=== PATIENT | female | born 1995 | race Caucasian/White ===

== ENCOUNTER 2017-04-15 06:06 | Day surgery (SDC) | payer BC ==
--- NOTE | 2017-04-13 06:17 | HP ---
HISTORY OF PRESENT ILLNESS: Marycarmen Ferrer is a 22-year-old female who was attending &[facility] for a year, developed a wound in her midline buttocks area, had bloody drainage and she treated with peroxide and gauze dressings, never really having it evaluated. She has seen Dr. Quinn recent ly and referred evaluation reveals changes consistent with a pilonidal cyst. This is a very large op ening with fleshy granulation tissue, opening is about a 2.5 to 3 cm. It extends deeply. There is n o active infection. The patient is 280 pounds, 67 inches tall, 43 BMI. Plan is for resection of the pilonidal cyst, plastic closure. Risk of infection, bleeding, reoperation, wound dehiscence, wound healing problems discussed. Questions answered. Plan is under general as an outpatient. ALLERGIES: None. TOBACCO: None. ALCOHOL: None. MEDICATIONS: None routinely. PAST SURGICAL HISTORY: Noncontributory. PAST MEDICAL HISTORY: Noncontributory. The patient has taken a semester off, looking for a job. Currently, she is living at home. PHYSICAL EXAMINATION VITAL SIGNS: Weight 280 pounds, height 67 inches, 43 BMI, blood pressure 119/63, pulse 87, and tempe rature 98.6 degrees. HEAD, EARS, EYES, NOSE AND THROAT: Unremarkable. LUNGS: Clear to auscultation. CARDIAC: Regular rate and rhythm without murmur or gallop. ABDOMEN: Soft, obese, nontender. In the midline presacral area and buttocks area, there is a large opening with fleshy granulation tissue extending down to the sacrum. EXTREMITIES: Unremarkable. ASSESSMENT AND PLAN. Anal fissure. This is a very large anal fissure. Saline wet to dry dressings were applied today. I have discussed surgical treatment with Z-plasty closure. Risks and benefits a s discussed above. Questions answered. We will plan next week. They understand the risks of wound healing problems and possibly local wound care for postoperatively if the wound comes apart.
[2017-04-14 13:53] VITALS: BMI 43.2
[2017-04-15] MEDS ORDERED: Bupivacaine 0.25% HCL 30 ML VIAL ONE (06:51)
[2017-04-15] MEDS ORDERED: Lidocaine 2% w/Epinephrine 1:200K 20 ML VIAL ONE (06:51)
[2017-04-15] MEDS ORDERED: Fentanyl 100 MCG/2 ML VIAL ONE (06:57)
[2017-04-15 07:03] LABS: #Basophils 0.1 thou/uL (0.0-0.2); #Eosinphils 0.1 thou/uL (0.0-0.7); #Lymphocytes 2.3 thou/uL (1.20-3.40); #Monocytes 0.6 thou/uL (0.11-0.59); #Neutrophils 4.3 thou/uL (1.40-6.50); %Basophils 0.8 % (0.0-1.0); %Eosinophils 1.1 % (0.0-10.0); %Monocytes 8.3 % (0.0-10.0); %Neutrophils 58.9 % (42.0-75.0); Hemoglobin 12.2 g/dL (12.0-16.0); Mean Corpuscular HGB CONC 33.6 g/dL (32.0-36.0); Mean Corpuscular Hemoglobin 28.6 pg (27.0-31.0); Mean Corpuscular Volume 85.1 fl (81.0-99.0); Mean Platelet Volume 7.9 fL (7.4-10.4); Platelet Count 286 thou/uL (130-400); RBC Distribution Width 12.1 % (11.5-14.5); Red Blood Cell (RBC) Count 4.27 mill/uL (4.20-5.40); White Blood Cell (WBC) Count 7.3 thou/uL (4.8-10.8)
[2017-04-15] MEDS ORDERED: Clindamycin/D5W 600 mg/50 ml Premix Bag ONE (07:10)
[2017-04-15] MEDS ORDERED: Scopolamine 1.5 mg/72 hour Patch ONE (07:10)
[2017-04-15] MEDS ORDERED: Ketorolac Tromethamine 30 MG/ML VIAL ONE (07:10)
[2017-04-15 07:13] LABS: BHCG - Serum Negative (NEGATIVE); Pregs Control Background? CLEAR/WHITE (CLR/WHITE); Pregs Control Bar Appear? YES (CONTROL BAR)
[2017-04-15] MEDS ORDERED: Clindamycin/D5W 600 MG in Premix Bag 1 BAG IVPB SCH (07:15)
[2017-04-15 07:28] LABS: Anion Gap 10 mmol/L (10-20); BUN (Urea Nitrogen) 14 mg/dL (7.0-18.7); Calc. Creatinine Clearance 180 mL/min (70-130); Calcium 9.4 mg/dL (7.8-10.44); Carbon Dioxide 29 mmol/L (22-29); Chloride 104 mmol/L (98-107); Estimated GFR-MDRD 74; Glucose 87 mg/dL (70-105); Potassium 3.9 mmol/L (3.5-5.1); Sodium 139 mmol/L (136-145)
[2017-04-15] MEDS ORDERED: Midazolam HCl 2 mg/2 ml Vial ONE (07:32)
--- NOTE | 2017-04-15 08:57 | OP ---
DATE OF PROCEDURE: 04/15/2017 PREOPERATIVE DIAGNOSES: 1. Pilonidal cyst with open wound. 2. Obesity. POSTOPERATIVE DIAGNOSES: 1. Pilonidal cyst with open wound. 2. Obesity. PROCEDURE: Excision of deep pilonidal cyst with Z-plasty closure, 2 layer plastic closure with a #1 0 round ELENA drain. SURGEON: Dr. Peyman Matson ANESTHESIA: General. Local 0.25% Marcaine, 30 mL, mixed with 1% Xylocaine with epinephrine, 30 mL t otal volume mixture used. PROCEDURE IN DETAIL: The patient was taken to the operating room where under general anesthesia in t he prone position, buttocks taped apart, prepared with ChloraPrep, draped in routine fashion. The op en wound is in the presacral space midline with fleshy granulation tissue approximately [address] and 2 cm deep. There was a dimple inferiorly midline with a large black hair protruding which wa s clipped prior to prepping. Elliptical incision was made and carried down through the skin and subc utaneous tissue to the buttocks fascia and all the disease removed without a visible sinus tract duri ng the resection. Hemostasis gained with cautery, markings were made for a Z-plasty flaps which were performed with cutting current cautery used for hemostasis with cautery current. Flaps dissected fr ee, mobilized and transposed and #10 ELENA drain round placed through a right upper buttock exit site se cured with 3-0 nylon suture. Drain tailored to length and placed in the deep tissue. Subcutaneous t issues approximated with continuous suture of 2-0 Monocryl. Skin approximated with continuous suture of 4-0 Monocryl and DermaGlue applied. Local anesthetic had been infiltrated about the wound for po stoperative pain control. The patient tolerated the procedure well.
[2017-04-15] MEDS ORDERED: HYDROcodone/Acetaminophen 5/325 mg Tablet ONE (11:00)
[2017-04-15] MEDS ORDERED: Dexamethasone 20 MG/5 ML VIAL ONE (15:16)
[2017-04-15] MEDS ORDERED: Ondansetron HCl/PF 4 MG/2 ML Vial ONE (15:16)
[2017-04-15] MEDS ORDERED: Glycopyrrolate 0.2 MG/ML 5 ML SYRINGE ONE (15:16)
[2017-04-15] MEDS ORDERED: Propofol 200 MG/20 ML VIAL ONE (15:16)
[2017-04-15] MEDS ORDERED: Lidocaine 1% PF 5 ML VIAL ONE (15:16)
== END 2017-04-15 11:07 | disposition home or self-care (01) ==
LOC: SDC 06:06 → EEVIPCON 06:06 → SDC 11:07
PROVIDERS: ATTEND Specialist
PROC: 0HX8XZZ Transfer Buttock Skin, External Approach (ICD-10-PCS; principal; 2017-04-15)
PROC: 0JB90ZZ Excision of Buttock Subcutaneous Tissue and Fascia, Open Approach (ICD-10-PCS; principal; 2017-04-15)
DX: L05.01 Pilonidal cyst with abscess (principal); Z68.41 Body mass index [BMI] 40.0-44.9, adult; E66.9 Obesity, unspecified
CPT/HCPCS: 36415; 80048; 84703; 85025; 88304; J0131; J1100; J1885; J1956; J2001; J2250; J2405; J2704; J3010; J3490; Q9968; S0020

== ENCOUNTER 2017-04-28 10:53 | Outpatient (CLI) | payer BC ==
[2017-04-28] MEDS ORDERED: Sodium Chloride 0.9% 15 ML NEB ONE (11:11)
== END 2017-04-28 10:54 | disposition home or self-care (01) ==
LOC: WCC 10:53
PROVIDERS: ATTEND Family Medicine
DX: T81.89XD Other complications of procedures, not elsewhere classified, subsequent encounter (principal)
CPT/HCPCS: 97602; A4218

== ENCOUNTER 2017-04-30 10:55 | Outpatient (CLI) | payer BC | END 2017-04-30 10:56 | disposition home or self-care (01) | LOC: WCC 10:55 | PROVIDERS: ATTEND Family Medicine | DX: T81.89XD Other complications of procedures, not elsewhere classified, subsequent encounter (principal) | CPT/HCPCS: 97606 ==

== ENCOUNTER 2017-05-04 09:05 | Outpatient (CLI) | payer BC ==
--- NOTE | 2017-05-04 10:51 | HP ---
DATE OF SERVICE: 05/04/2017 HISTORY OF PRESENT ILLNESS: Ms. Marycarmen Ferrer is a very pleasant 22-year-old accompanied by her mo ther who presents to the [facility] for evaluation of a wound of the sacral area subsequent to exci carl of a deep pilonidal cyst with Z-plasty closure. The patient underwent the preceding procedure o n 04/15/2017, by Dr. Peyman Matson. The patient states that at her first visit with Dr. Dano lima surgery, she was told that her skin flaps were possibly nonviable. She states that at a second fol low up visit on 04/28/2017, necrotic and nonviable tissue was excised and at this time, the patient w as referred to the Wound Center for the initiation of negative pressure therapy. Ms. Ferrer has no co mplaints today except for itching of her skin surrounding her wound for which she takes Benadryl. Th e patient denies any fever or chills. PAST MEDICAL HISTORY: Negative for any chronic medical conditions. PAST SURGICAL HISTORY: Excision of deep pilonidal cyst with Z-plasty closure on 04/15/2017, by Dr. Oswaldo Matson. MEDICATIONS: 1. Tylenol. 2. Benadryl. ALLERGIES: No known diagnosed allergies. SOCIAL HISTORY: Negative for tobacco or EtOH use. FAMILY HISTORY: Negative for diabetes mellitus or coronary artery disease. PHYSICAL EXAMINATION: VITAL SIGNS: Temperature 98.1, pulse 119, respirations 19 and blood pressure 117/56. GENERAL: A 22-year-old female lying on table in prone position in no acute distress. HEENT: Normocephalic and atraumatic. NECK: No nuchal rigidity. CHEST: Clear to auscultation. CARDIOVASCULAR: Regular rate and rhythm. ABDOMEN: Soft. BACK: A wound of the sacral region subsequent to excision of the pilonidal cyst with Z-plasty closur e is present. The depth of the wound is approximately 6 cm. Granulation tissue is present within th e wound margins. No purulent drainage is associated with the wound. No cellulitis of the sacral reg ion is appreciated. No maceration of the skin of the periwound is noted. EXTREMITIES: No clubbing or cyanosis. NEUROLOGIC: Grossly nonfocal. ASSESSMENT AND PLAN: Sacral wound subsequent to excision of the pilonidal cyst with Z-plasty on 03/18, by Dr. Peyman Matson. Negative pressure therapy will be continued with dressing changes of the wound VAC 2 times per week here in the Wound Center. The patient will be seen by Dr. Matson in t he near future. I will see Ms. Ferrer again in two weeks. No antibiotics will be prescribed today ba sed upon the appearance of the wound. The wound VAC will be placed to settings of 125 mmHg, continuo us today.
[2017-05-04] MEDS ORDERED: Sodium Chloride 0.9% 15 ML NEB ONE (11:11)
== END 2017-05-04 09:06 | disposition home or self-care (01) ==
LOC: WCC 09:05
PROVIDERS: ATTEND Family Medicine
DX: S31.000D Unspecified open wound of lower back and pelvis without penetration into retroperitoneum, subsequent encounter (principal); Z98.890 Other specified postprocedural states
CPT/HCPCS: 97606; 99203; A4218; G0463

== ENCOUNTER 2017-05-07 16:12 | Outpatient (CLI) | payer BC | END 2017-05-07 16:13 | disposition home or self-care (01) | LOC: WCC 16:12 | PROVIDERS: ATTEND Family Medicine | DX: T81.89XD Other complications of procedures, not elsewhere classified, subsequent encounter (principal) | CPT/HCPCS: 97605 ==

== ENCOUNTER 2017-05-08 15:10 | Outpatient (CLI) | payer BC | END 2017-05-08 15:11 | disposition home or self-care (01) | LOC: WCC 15:10 | PROVIDERS: ATTEND Family Medicine | DX: T81.89XD Other complications of procedures, not elsewhere classified, subsequent encounter (principal) | CPT/HCPCS: 97605 ==

== ENCOUNTER 2017-05-11 14:05 | Outpatient (CLI) | payer BC ==
[2017-05-11] MEDS ORDERED: Lidocaine 4% Topical Sol 50 ML BOT ONE (14:20)
== END 2017-05-11 14:06 | disposition home or self-care (01) ==
LOC: WCC 14:05
PROVIDERS: ATTEND Family Medicine
DX: T81.89XD Other complications of procedures, not elsewhere classified, subsequent encounter (principal)
CPT/HCPCS: 97605; J2001

== ENCOUNTER 2017-05-14 14:59 | Outpatient (CLI) | payer BC | END 2017-05-14 15:00 | disposition home or self-care (01) | LOC: WCC 14:59 | PROVIDERS: ATTEND Family Medicine | DX: T81.89XD Other complications of procedures, not elsewhere classified, subsequent encounter (principal) | CPT/HCPCS: 97605 ==

== ENCOUNTER 2017-05-18 09:25 | Outpatient (CLI) | payer BC ==
[~2017-05-18 09:25] MED LIST: Sodium Chloride 0.9% 15 ML NEB ONE
--- NOTE | 2017-05-18 10:36 | PRG ---
DATE OF SERVICE: 05/18/2017 HISTORY: Ms. Marycarmen Ferrer is a very pleasant 22-year-old, accompanied by her mother, who presents to the [facility] Center for evaluation of a wound of the sacral area subsequent to excision of a deep pilonidal cyst with Z-plasty closure. The patient underwent the preceding procedure on 04/15/[address] Peyman Matson. The patient previously stated that at her first visit with Dr. Matson after surgery, she was told that her skin flaps were possibly nonviable. She stated that at a second follow-up visit on 04/28/2017, necrotic and nonviable tissue was excised, and at this time, the patient was referred to the Wound Center for the initiation of negative pressure therapy. The patient has no complaints today. She denies any fever or chills. PHYSICAL EXAMINATION: VITAL SIGNS: Temperature 97.5, pulse 81, respirations 18, blood pressure 106/ 58. BACK: A wound of the sacral region subsequent to excision of the pilonidal cyst with Z-plasty closure is present. The depth of the wound is approximately 5.5 cm. The depth of the wound at the time of the patient's initial presentation to the Wound Center was approximately 6 cm. Granulation tissue is present within the wound margins. No purulent drainage is associated with the wound. No cellulitis of the sacral region is appreciated. No maceration of the skin of the periwound is noted. ASSESSMENT AND PLAN: Sacral wound subsequent to excision of pilonidal cyst with Z-plasty on 04/15/[address] Peyman Matson. Negative pressure therapy will be continued with dressing changes of the wound VAC 2 times per week here in the Wound Center. The patient will be seen by Dr. Matson in the near future. I will see Ms. Ferrer again in 2 weeks. The wound VAC will be placed to settings of 125 mmHg, continuous today. MTDD
== END 2017-05-18 09:26 | disposition home or self-care (01) ==
LOC: WCC 09:25
PROVIDERS: ATTEND Family Medicine
DX: T81.89XD Other complications of procedures, not elsewhere classified, subsequent encounter (principal)
CPT/HCPCS: 97606; 99203; A4218; G0463

== ENCOUNTER 2017-05-21 14:55 | Outpatient (CLI) | payer BC | END 2017-05-21 14:56 | disposition home or self-care (01) | LOC: WCC 14:55 | PROVIDERS: ATTEND Family Medicine | DX: T81.89XD Other complications of procedures, not elsewhere classified, subsequent encounter (principal) | CPT/HCPCS: 97605; A4218 ==

== ENCOUNTER 2017-05-25 09:15 | Outpatient (CLI) | payer BC | END 2017-05-25 09:16 | disposition home or self-care (01) | LOC: WCC 09:15 | PROVIDERS: ATTEND Family Medicine | DX: T81.89XD Other complications of procedures, not elsewhere classified, subsequent encounter (principal) | CPT/HCPCS: 97606; A4218 ==

== ENCOUNTER 2017-05-28 10:14 | Outpatient (CLI) | payer BC ==
[2017-05-28] MEDS ORDERED: Sodium Chloride 0.9% 15 ML NEB ONE (16:19)
== END 2017-05-28 10:15 | disposition home or self-care (01) ==
LOC: WCC 10:14
PROVIDERS: ATTEND Family Medicine
DX: T81.89XD Other complications of procedures, not elsewhere classified, subsequent encounter (principal)
CPT/HCPCS: 97606; A4218

== ENCOUNTER 2017-06-01 10:05 | Outpatient (CLI) | payer BC ==
--- NOTE | 2017-06-01 11:18 | PRG ---
DATE OF SERVICE: 06/01/2017 HISTORY: Ms. Marycarmen Ferrer is a very pleasant 22-year-old who presents to the [facility] Center for andreas luation of a wound of the sacral area subsequent to excision of a deep pilonidal cyst with Z-plasty c losure. The patient underwent the preceding procedure on 04/15/[address] Peyman Matson. The lauryn ent previously stated that at her first visit with Dr. Matson after surgery, she was told that her sk in flaps were possibly nonviable. She stated that at a second followup visit on 04/28/2017, necrotic and nonviable tissue was excised and at this time, the patient was referred to the Wound Center for the initiation of negative pressure therapy. Ms. Ferrer has no complaints today. She denies any feve r or chills. PHYSICAL EXAMINATION: VITAL SIGNS: Temperature 97.8, pulse 91, respirations 17, blood pressure 124/68. BACK: A wound of sacral region subsequent to excision of pilonidal cyst with Z-plasty closure is pre sent. The depth of the wound is approximately 4.5 cm. The depth of the wound at the time of the pat ient's visit on 05/18/2017 was approximately 5.5 cm. Granulation tissue is present within the wound margins. No purulent drainage is associated with the wound. No cellulitis of the sacral region is a ppreciated. No maceration of the skin of the periwound is noted. ASSESSMENT AND PLAN: Sacral wound subsequent to excision of pilonidal cyst with Z-plasty on 04/15/[address] Peyman Matson. Negative pressure therapy will be continued with dressing changes of the w ound VAC 2 times per week here in the Wound Center. I will see Ms. Ferrer again in two weeks. The wo und VAC will be placed to settings of 125 mmHg continuous today.
[2017-06-01] MEDS ORDERED: Sodium Chloride 0.9% 15 ML NEB ONE (19:52)
== END 2017-06-01 10:06 | disposition home or self-care (01) ==
LOC: WCC 10:05
PROVIDERS: ATTEND Family Medicine
DX: T81.89XD Other complications of procedures, not elsewhere classified, subsequent encounter (principal); S31.000D Unspecified open wound of lower back and pelvis without penetration into retroperitoneum, subsequent encounter
CPT/HCPCS: A4218

== ENCOUNTER 2017-06-04 13:49 | Outpatient (CLI) | payer BC | END 2017-06-04 13:50 | disposition home or self-care (01) | LOC: WCC 13:49 | PROVIDERS: ATTEND Family Medicine | DX: T81.89XA Other complications of procedures, not elsewhere classified, initial encounter (principal) | CPT/HCPCS: 97606 ==

== ENCOUNTER 2017-06-08 09:00 | Outpatient (CLI) | payer BC | END 2017-06-08 09:01 | disposition home or self-care (01) | LOC: WCC 09:00 | PROVIDERS: ATTEND Family Medicine | DX: T81.89XD Other complications of procedures, not elsewhere classified, subsequent encounter (principal) | CPT/HCPCS: 97606; A4218 ==

== ENCOUNTER 2017-06-11 13:26 | Outpatient (CLI) | payer BC | END 2017-06-11 13:27 | disposition home or self-care (01) | LOC: WCC 13:26 | PROVIDERS: ATTEND Family Medicine | DX: T81.89XD Other complications of procedures, not elsewhere classified, subsequent encounter (principal) | CPT/HCPCS: 97606 ==

== ENCOUNTER 2017-06-15 09:25 | Outpatient (CLI) | payer BC ==
[2017-06-15] MEDS ORDERED: Sodium Chloride 0.9% 15 ML NEB ONE (19:54)
== END 2017-06-15 09:26 | disposition home or self-care (01) ==
LOC: WCC 09:25
PROVIDERS: ATTEND Family Medicine
DX: T81.89XD Other complications of procedures, not elsewhere classified, subsequent encounter (principal)
CPT/HCPCS: 97606; A4218

== ENCOUNTER 2017-06-18 14:29 | Outpatient (CLI) | payer BC ==
[2017-06-18] MEDS ORDERED: Sodium Chloride 0.9% 15 ML NEB ONE (21:37)
== END 2017-06-18 14:30 | disposition home or self-care (01) ==
LOC: WCC 14:29
PROVIDERS: ATTEND Family Medicine
DX: T81.89XD Other complications of procedures, not elsewhere classified, subsequent encounter (principal)
CPT/HCPCS: 97605; A4218

== ENCOUNTER 2017-06-22 13:49 | Outpatient (CLI) | payer BC ==
[2017-06-22] MEDS ORDERED: Sodium Chloride 0.9% 15 ML NEB ONE (18:54)
== END 2017-06-22 13:50 | disposition home or self-care (01) ==
LOC: WCC 13:49
PROVIDERS: ATTEND Family Medicine
DX: T81.89XD Other complications of procedures, not elsewhere classified, subsequent encounter (principal)
CPT/HCPCS: 97605; A4218

== ENCOUNTER 2017-06-25 13:16 | Outpatient (CLI) | payer BC | END 2017-06-25 13:17 | disposition home or self-care (01) | LOC: WCC 13:16 | PROVIDERS: ATTEND Family Medicine | DX: T81.89XD Other complications of procedures, not elsewhere classified, subsequent encounter (principal) | CPT/HCPCS: 97605 ==

== ENCOUNTER 2017-06-29 09:10 | Outpatient (CLI) | payer BC ==
--- NOTE | 2017-06-29 10:58 | PRG ---
DATE OF SERVICE: 06/29/2017 HISTORY: Ms. Marycarmen Ferrer is a very pleasant 22-year-old who presents to the [facility] Center for andreas luation of a wound of the sacral area subsequent to excision of a deep pilonidal cyst with Z-plasty c losure. The patient underwent the preceding procedure on 04/15/[address] Peyman Matson. The lauryn ent previously stated that at her first visit with Dr. Matson after surgery, she was told that her sk in flaps were possibly nonviable. She stated that at a second followup visit on 04/28/2017, necrotic and nonviable tissue was excised and at this time, the patient was referred to the Wound Center for the initiation of negative pressure therapy. The patient has completed a course of negative pressure therapy and is now receiving wet to dry dressing changes as per Dr. Matson. The patient has no comp laints today. She denies any fever or chills. PHYSICAL EXAMINATION: VITAL SIGNS: Temperature 97.7, pulse 92, respirations 18, blood pressure 126/63. BACK: A wound of the sacral region subsequent to excision of pilonidal cyst with Z-plasty closure is present. The dimensions of the wound are approximately 5.0 x 1.8 cm. Granulation tissue is present within the wound margins. No purulent drainage is associated with the wound. No erythema of the sk in surrounding the wound is present. No maceration of the skin of the periwound is noted. ASSESSMENT AND PLAN: Sacral wound subsequent to excision of pilonidal cyst with Z-plasty on 04/15/[address] Peyman Matson. Wet to dry dressing changes as per Dr. Matson will be continued on a daily basis after cleansing and irrigation. The patient has completed a course of negative pressure thera py. The patient has a followup appointment with Dr. Matson in 2 weeks. I will see Ms. Ferrer as need ed after her evaluation by General Surgery in 2 weeks.
[2017-06-29] MEDS ORDERED: Sodium Chloride 0.9% 15 ML NEB ONE (14:53)
== END 2017-06-29 09:11 | disposition home or self-care (01) ==
LOC: WCC 09:10
PROVIDERS: ATTEND Family Medicine
DX: T81.89XD Other complications of procedures, not elsewhere classified, subsequent encounter (principal)
CPT/HCPCS: A4218

== ENCOUNTER 2017-07-15 08:34 | Outpatient (CLI) | payer BC ==
[2017-07-15] MEDS ORDERED: Sodium Chloride 0.9% 15 ML NEB ONE (09:00)
--- NOTE | 2017-07-15 09:05 | PRG ---
DATE OF SERVICE: 07/15/2017 HISTORY: Ms. Marycarmen Ferrer is a very pleasant 22-year-old who presents to the [facility] Center for andreas luation of a wound of the sacral area subsequent to excision of a deep pilonidal cyst with Z-plasty c losure. The patient underwent the preceding procedure on 04/15/[address] Peyman Matson. The lauryn ent previously stated that at her first visit with Dr. Matson after surgery, she was told that her sk in flaps were possibly nonviable. She stated that at a second followup visit on 04/28/2017, necrotic and nonviable tissue was excised and at this time, the patient was referred to the Wound Center for the initiation of negative pressure therapy. The patient has completed a course of negative pressure therapy and is now receiving wet to dry dressing changes as per Dr. Matson. Ms. Ferrer has no compla ints today. She denies any fever or chills. PHYSICAL EXAMINATION: VITAL SIGNS: Temperature 98.0, pulse 86, respirations 18, and blood pressure 123/64. BACK: A wound of the sacral region subsequent to excision of a pilonidal cyst with Z-plasty closure is present. The dimensions of the wound are approximately 5.0 x 5.0 cm. Granulation tissue is prese nt within the wound margins. No purulent drainage is associated with the wound. No erythema of the skin surrounding the wound is present. No maceration of the skin of the periwound is noted. ASSESSMENT AND PLAN: Sacral wound subsequent to excision of pilonidal cyst with Z-plasty on 04/15/[address] Peyman Maston. Wet to dry dressing changes as per Dr. Matson will be continued on a daily basis after cleansing and irrigation. The patient has completed a course of negative pressure thera py. The patient has a followup appointment with Dr. Matson in approximately 1-1/2 weeks. I will see Ms. Ferrer again in 3-4 weeks.
== END 2017-07-15 08:35 | disposition home or self-care (01) ==
LOC: WCC 08:34
PROVIDERS: ATTEND Family Medicine
DX: T81.89XD Other complications of procedures, not elsewhere classified, subsequent encounter (principal)
CPT/HCPCS: 97602; A4218